=== PATIENT | male | born 1980 | race American Indian/Alaskan Native ===

== ENCOUNTER 2020-03-10 12:12 | Emergency (ER) | payer SELFPAY ==
[2020-03-10 12:32] VITALS: BP 142/92
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
== END 2020-03-10 14:25 | disposition home or self-care (01) ==
LOC: ED 12:12
DX: T14.8XXD Other injury of unspecified body region, subsequent encounter (principal); X58.XXXD Exposure to other specified factors, subsequent encounter; Z48.02 Encounter for removal of sutures